=== PATIENT | male | born 1980 | race Caucasian/White ===

== ENCOUNTER 2023-07-17 18:50 | Emergency (ER) | payer BC, SELFPAY ==
[2023-07-17 18:59] VITALS: BP 142/99; PULSE 109; RESP 20; TEMP 37.1; O2SAT 94; BMI 37.8
--- NOTE | 2023-07-17 19:18 | ED_ITS ---
HPI - Extremity Injury (Lower) General Date Seen: 07/17/23 Chief Complaint: Extremity Pain/Injury, Lower Stated Complaint: L leg hurt last wednesday edwin kenyon-still in pain Time Seen by Provider: 07/17/23 19:06 Source: patient Mode of arrival: ambulatory Limitations: no limitations History of Present Illness HPI Narrative: Patient is a 43-year-old male with no pertinent medical problems presenting for left knee pain. 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 She states all happened so fast he has no exactly what happened but noted afterwards his left knee hurts significantly. Continue to her to next daily went to urgent care. X-rays regard showing no fractures. He has been wearing a knee brace since then but continued to have a large amount of pain. Says the pain got worse today and he heard Audible popping of the knee. States most the pain is in the medial aspect of the knee. Denies any other injuries. Has not noticed any swelling to the knee. No other concerns at this time Related Data Home Medications Medication Instructions Recorded Confirmed cyclobenzaprine 10 mg tablet mg PO 07/17/23 prednisone 20 mg tablet 20 mg PO BID 07/17/23 07/17/23 Allergies Allergy/AdvReac Type Severity Reaction Status Date / Time No Known Drug Allergies Allergy Verified 07/17/23 19:04 Review of Systems Narrative: Pertinent systems reviewed and negative unless stated in HPI PFSH PFSH Social History Smoking Status: Never smoker Non-prescribed substance use: denies use Exam Narrative: Exam Narrative: Const: Well-nourished, Well-developed, in mild distress Eyes: PERRL, no conjunctival injection, and symmetrical lids HENT: Atraumatic external nose and ears. Moist mucous membranes. MSK:Extremities w/o deformity, Normal Active ROM. Normal anterior and posterior draw test. Does have increased widening of the left MCL on the valgus stress test compared to the right. Is relatively mild increase. Normal varus test. Normal appearing quadriceps and patellar tendon. Slightly increased in motion of the left patella compared to the right Skin: Warm, Dry. No rashes or lesions. Neuro: Normal Muscle tone, No focal neurological deficits. Psych: Awake, Alert, & Oriented x3. Appropriate mood and affect. Const: Vital Signs, click to edit/add: Vital Signs - 24 hr 07/17/23 18:59 Temperature 98.8 F Pulse Rate [Right Pulse Oximeter] 109 H Respiratory Rate 20 Blood Pressure [Ri ght Upper Arm] 142/99 H Pulse Oximetry 94 Oxygen Delivery Me thod Room Air Course Vital Signs Vital signs: Initial Vital Signs Temperature 98.8 F 07/17/23 18:59 Temperature Source Temporal Artery Scan 07/17/23 18:59 Pulse Rate 109 H 07/17/23 18:59 Pulse Rhythm Regular 07/17/23 18:59 Respiratory Rate 20 07/17/23 18:59 Blood Pressure 142/99 H 07/17/23 18:59 Blood Pressure Mean 113 H 07/17/23 18:59 Blood Pressure Position Sitting 07/17/23 18:59 Pulse Oximetry 94 07/17/23 18:59 Oxygen Delivery Method Room Air 07/17/23 18:59 Vital Signs Temperature 98.8 F 07/17/23 18:59 Pulse Rate 109 H 07/17/23 18:59 Respiratory Rate 20 07/17/23 18:59 Blood Pressure 142/99 H 07/17/23 18:59 Pulse Oximetry 94 07/17/23 18:59 Oxygen Delivery Method Room Air 07/17/23 18:59 Temperature 98.8 F 07/17/23 18:59 Pulse Rate 109 H 07/17/23 18:59 Respiratory Rate 20 07/17/23 18:59 Blood Pressure 142/99 H 07/17/23 18:59 Pulse Oximetry 94 07/17/23 18:59 Oxygen Delivery Method Room Air 07/17/23 18:59 Medications Administered Medications: Discontinued Medications Generic Name Dose Route Start Last Admin Trade Name Vladimir PRN Reason Stop Dose Admin Oxycodone HCl 5 mg 07/17/23 19:18 07/17/23 19:21 Oxycodone 5 Mg Tablet PO 07/17/23 19:19 5 mg ONCE ONE Administration MDM - Extremity Injury (Lower) MDM Narrative Medical decision making narrative: Patient is a 43-year-old male presenting for left knee pain. On my exam I believe he has an MCL injury. He has been ambulatory on it with his knee brace states most the pain is just when he is walking. He does not have an appointment with Orthopedics until the which is 10 days from now. We will see if we get him in earlier appointment. He does appear to be in pain and does not appear to be pain seeking so I will give him dose of oxycodone and some oxycodone to go home with through [facility]. He has already had x-rays of this knee and not believe repeating them would have any benefit at this time. We are unable to do an MRI at this time. He was placed in a knee immobilizer and discharged home. Discharge Plan Discharge Clinical Impression: Instability of MCL Patient Disposition: Home, Self-Care Condition: Stable Instructions: Knee Immobilizer (ED) Additional Instructions: Wear the knee immobilizer when walking around. When you are sitting or lying down you can take it off and have range of motion of the knee. Please call [phone] to schedule orthopedic follow up. Prescriptions: No Action cyclobenzaprine 10 mg tablet PO prednisone 20 mg tablet 20 mg PO BID Stand Alone Forms: [employer] Info Instructions
[2023-07-17] MEDS: OXYCODONE 5 MG TABLET PO (19:21)
== END 2023-07-17 19:56 | disposition home or self-care (01) ==
PROVIDERS: Emergency Provider Student in an Organized Health Care Education/Training Program
DX: S83.412A Sprain of medial collateral ligament of left knee, initial encounter (principal)
CPT/HCPCS: 29505; 99282; 99283; A9270

== ENCOUNTER 2023-07-26 17:45 | Outpatient (CLI) | payer BC, SELFPAY ==
--- NOTE | 2023-07-26 18:15 | MR_ITS ---
[address] [address] Phone:?[phone] Fax:?[phone] Referring Physician Information: Mohan Stephens M.D. [id number] [facility] [address] Phone:?[phone] Fax:?[phone] Patient:Maya Barbosa D.O.B:?1980 Sex:?Male Phone:?[phone] [facility] MRN:?[id number] Exam Date:?07/26/2023 EXAM: MRI of the LEFT KNEE, without contrast CLINICAL: Left knee injury. Evaluate for medial meniscal tear. COMPARISONS: X-rays dated 07/11/2023. TECHNICAL: Multiplanar multisequence MRI of the left knee was obtained. SEDATION: None. CONTRAST: None. FINDINGS: Ligaments: ACL: Intact and unremarkable. PCL: Intact and unremarkable. MCL: Intact and unremarkable. LCL: Intact and unremarkable. Posterolateral corner: Popliteus, biceps femoris, iliotibial band, and the popliteofibular ligament appear intact. Posteromedial corner: Semimembranosus, pes anserine tendons and posterior oblique ligament appear intact. Extensor mechanism: Patellar tendon: Intact, without tendinopathy. Quadriceps tendon: Intact, without tendinopathy. Retinacula: Medial and lateral retinacula are intact. Fat pads: Unremarkable infrapatellar Hoffa's, quadriceps and prefemoral fat pads. Patellofemoral joint: Patella: No significant chondromalacia. Trochlea: No significant chondromalacia. Medial compartment: Medial meniscus: There is horizontal/oblique tearing involving the posterior horn on sagittal series 6 images 7-12. Complex tearing involves the peripheral body segment as seen on coronal series 7 images 19-21. No significant meniscal displacement. Medial cartilage: No significant chondromalacia. Lateral compartment: Lateral meniscus: No evidence of discrete meniscal tear or meniscal displacement. Lateral cartilage: No significant chondromalacia. Knee joint: Effusion: Physiologic left knee effusion. Intra-articular bodies:?No convincing bodies identified. Popliteal cyst: None. Bones: There is minimal reactive marrow edema involving the peripheral medial tibial plateau adjacent to the medial meniscal tear. No evidence of fracture. IMPRESSION: 1. Tearing of the medial meniscus as above. 2. No additional internal derangement identified. JCZ Electronically signed on 07/27/2023 9:07:00 AM by Deondre Amanda D.O.
== END 2023-07-26 17:46 | disposition home or self-care (01) ==
LOC: MRI 17:46
PROVIDERS: Visit Provider Orthopaedic Surgery
DX: S83.207A Unspecified tear of unspecified meniscus, current injury, left knee, initial encounter (principal)
CPT/HCPCS: 73721

== ENCOUNTER 2023-08-26 07:36 | Day surgery (SDC) | payer BC, SELFPAY ==
[2023-08-26] VITALS (13 sets, daily range): BP systolic 97–133; BP diastolic 58–95; PULSE 70–89; RESP 10–20; TEMP 36.2–36.8; O2SAT 89–98; BMI 38.3
[2023-08-26] MEDS: LACTATED RINGERS 1000 ML 1,000 ML 100 ML IV ×2 (08:15→10:30)
--- NOTE | 2023-08-26 10:24 | P.ORPRC_ITS ---
Procedure Note Date of procedure: 08/26/23 Procedure: PREOPERATIVE DIAGNOSIS: Left knee medial meniscus tear POSTOPERATIVE DIAGNOSIS: Left knee medial meniscus tear NAME OF OPERATION: Left knee arthroscopic partial medial meniscectomy SURGEON: Mohan Stephens MD [facility] HYDROLOGIST: Sandra Navarro PA-C ANESTHESIA: Spinal ESTIMATED BLOOD LOSS: 0 mL COMPLICATIONS: None SPECIMENS: None DRAINS: None PREOPERATIVE ANTIBIOTICS: Ancef 2 gram INDICATIONS: The patient is a 43-year-old with a history of left knee medial pain. MRI scan is consistent with a medial meniscus tear. Despite appropriate nonoperative management, including activity modification, antiinflammatories, [id number] pain medication, bracing, physical therapy, and injections they continue to have pain and disability. Operative intervention was offered. The risks, benefits and expected outcomes were discussed in detail. These included but were not limited to: Infection, bleeding, injury to blood vessel or nerve, venous thromboembolism. All questions were answered to their satisfaction. PROCEDURE: Spinal anesthesia was administered. The patient was placed supine on the operating room table. The left lower extremity was prepped and draped in the usual sterile fashion. The limb was exsanguinated with the Thiago bandage. The pneumatic tourniquet was inflated to 300 mmHg. A standard anterolateral portal was established. The arthroscope was introduced. The working portal was established anteromedially. Diagnostic arthroscopy was performed with findings as follows: The suprapatellar pouch is normal. Articular surface on the patella is normal. Articular surface on the trochlea is normal. The medial gutter is normal. The medial compartment shows diffuse grade 1/2 change on the medial femoral condyle, normal articular cartilage on the medial tibial plateau. The medial meniscus has an incomplete, vertical longitudinal tear of midbody, into the posterior horn. This starts on the inferior articular surface. The notch shows the ACL to be intact. The lateral compartment shows normal articular cartilage on the lateral femoral condyle and lateral tibial plateau. The lateral meniscus is normal. The lateral gutter is normal. The posterior horn of the medial meniscus was debrided to a stable base using a combination of baskets and antonio through both portals. Arthroscopic instruments were removed, the portal sites were Steri-Stripped closed, the knee was infiltrated with 30 mL of 0.25% Marcaine without epinephrine. A dry dressing was applied, the tourniquet was released. Sponge and needle counts were correct x 2. The patient tolerated the procedure well. There were no apparent complications. They were carefully transferred to the hospital bed and taken to the postanesthesia care unit in satisfactory condition. PLAN: The patient will be discharged to home. They may weightbear as tolerates. Range of motion will be unrestricted. They will follow up in the office next week for a wound check.
[2023-08-26] MEDS: CEFAZOLIN 2 GM INJ IVP (10:29)
--- NOTE | 2023-08-26 10:49 | W.ANESCHARGE ---
Anesthesia Charges Start Date/Time Anesthesia Start Date: 08/26/23 Anesthesia Start Time: 10:10 Stop Date/Time Anesthesia Stop Date: 08/26/23 Anesthesia Stop Time: 11:04
[2023-08-26] MEDS: BUPIVACAINE 0.25% 30 ML INJECTION (10:51)
--- NOTE | 2023-08-26 11:02 | W.ANESCHARGE ---
Anesthesia Charges Start Date/Time Anesthesia Start Date: 08/26/23 Anesthesia Start Time: 10:10 Stop Date/Time Anesthesia Stop Date: 08/26/23 Anesthesia Stop Time: 11:04
== END 2023-08-26 13:04 | disposition home or self-care (01) ==
PROVIDERS: Visit Provider Orthopaedic Surgery
PROC: (CPT 29870; principal; 2023-08-26 09:15)
DX: M23.222 Derangement of posterior horn of medial meniscus due to old tear or injury, left knee (principal)
CPT/HCPCS: 29881; 01400; J0665; J0690; J1100; J2250; J2405; J2704; J3010; J7120